=== PATIENT | male | born 1985 | race Caucasian/White ===

== ENCOUNTER 2021-05-11 22:14 | Emergency (ER) | payer SELFPAY ==
[~2021-05-11] VITALS: Ht 167.6 cm; Wt 72.1 kg
--- NOTE | 2021-05-11 22:26 | PHYS DOC ---
Past Medical History Past Medical History: No Pertinent History Past Surgical History: No Surgical History Smoking Status: Never Smoker Alcohol Use: None Drug Use: None General Adult EDM: Chief Complaint: CHEST PAIN HPI: HPI: 35-year-old male presents to the emergency department complaining of 2 weeks of left-sided chest pain adjacent to his sternum. He reports no palliative or provoking factors to his chest pain. He states the pain is intermittent, comes on at rest and with activity. He states the chest pain is also present when he breathes in deep. The patient denies any history of blood clots in his legs or his lungs, no recent travel including no long trips in the car or flights, no family history of blood clots, no personal history of any cancers or clotting disorders. He admits to nausea and one episode of vomiting. He denies any leg swelling, palpitations, cough, shortness of breath, fevers, chills, abdominal pain. Review of Systems: Review of Systems: ROS is otherwise negative except for what was mentioned in the HPI Heart Score: C/O Chest Pain: Yes HEART Score for Chest Pain: HEART Score for Chest Pain Response (Comments) Value History Slighlty/Non-Suspicious 0 ECG Normal 0 Age < 45 0 Risk Factors No Risk Factors 0 Troponin < Normal Limit 0 Total 0 Allergies: Allergies: Allergies Coded Allergies Type Severity Reaction Last Updated Verified No Known Drug Allergies 05/11/21 No Physical Exam: PE: Constitutional: No acute distress, non-toxic appearance. HENT: Atraumatic, bilateral external ears normal, nose normal. Eyes: Conjunctiva normal, no discharge. Neck: Normal range of motion, supple, no stridor. Cardiovascular: Heart rate regular rhythm. 2+ radial pulses and equal Lungs & Thorax: No respiratory distress, symmetrical expansion. Bilateral breath sounds clear to auscultation Chest wall: No reproducible chest wall tenderness to palpation, no lesions. Abdomen: Soft, no tenderness Skin: Warm, dry. Extremities: No tenderness, no cyanosis, ROM intact, no edema. Neurologic: Alert and oriented X 3, normal motor function, normal sensory function, no focal deficits noted. GCS 15. Psychologic: Affect normal, judgment normal, mood normal. Current Patient Data: Labs: Laboratory Tests Test 05/11/21 22:30 White Blood Count 7.1 x10^3/uL (4.0-11.0) Red Blood Count 4.90 x10^6/uL (4.30-5.70) Hemoglobin 15.0 g/dL (13.0-17.5) Hematocrit 42.8 % (39.0-53.0) Mean Corpuscular Volume 87 fL (79-100) Mean Corpuscular Hemoglobin 31 pg (25-35) Mean Corpuscular Hemoglobin Concent 35 g/dL (31-37) Red Cell Distribution Width 12.1 % (11.5-14.5) Platelet Count 203 x10^3/uL (140-400) Neutrophils (%) (Auto) 64 % (31-73) Lymphocytes (%) (Auto) 27 % (24-48) Monocytes (%) (Auto) 7 % (0-9) Eosinophils (%) (Auto) 1 % (0-3) Basophils (%) (Auto) 1 % (0-3) Neutrophils # (Auto) 4.6 x10^3/uL (1.8-7.7) Lymphocytes # (Auto) 2.0 x10^3/uL (1.0-4.8) Monocytes # (Auto) 0.5 x10^3/uL (0.0-1.1) Eosinophils # (Auto) 0.1 x10^3/uL (0.0-0.7) Basophils # (Auto) 0.0 x10^3/uL (0.0-0.2) Sodium Level 141 mmol/L (136-145) Potassium Level 3.4 mmol/L (3.5-5.1) Chloride Level 104 mmol/L (98-107) Carbon Dioxide Level 29 mmol/L (21-32) Anion Gap 8 (6-14) Blood Urea Nitrogen 8 mg/dL (8-26) Creatinine 1.2 mg/dL (0.7-1.3) Estimated GFR (Cockcroft-Gault) 68.1 Glucose Level 114 mg/dL (70-99) Calcium Level 8.6 mg/dL (8.5-10.1) Troponin I Quantitative < 0.017 ng/mL (0.000-0.055) TN-Uts-B-Type Natriuretic Peptide 20 pg/mL (0-124) Vital Signs: Vital Signs Date Time Temp Pulse Resp B/P (MAP) Pulse Ox O2 Delivery O2 Flow Rate FiO2 9/11/21 22:16 97.6 61 16 160/97 (118) 95 Room Air 97.6 EKG: EK: Normal sinus rhythm rate of 59, no ST-T wave changes, no ectopic beats, normal axis, normal NV, QRS, and QTc intervals. Impression: Normal EKG. interpreted by meGreg D.O. Radiology/Procedures: Radiology/Procedures: Exam: Chest one view INDICATION: Chest pain TECHNIQUE: Frontal view of the chest Comparisons: None FINDINGS: The cardiomediastinal silhouette and pulmonary vessels are within normal limits. The lung and pleural spaces are clear. IMPRESSION: No acute cardiopulmonary process. Electronically signed by: Louann Davila MD (05/11/2021 11:33 PM) Course & Med Decision Making: Course & Med Decision Making PERC Rule for Pulmonary Embolism from [employer] on 05/11/2021 RESULT SUMMARY: 0 criteria No need for further workup, as <2% chance of PE. If no criteria are positive and clinicians pre-test probability is <15%, PERC Rule criteria are satisfied. INPUTS: Age ?50 > 0 = No HR ?100 > 0 = No O? sat on room air > 0 = No Unilateral leg swelling > 0 = No Hemoptysis > 0 = No Recent surgery or trauma > 0 = No Prior PE or DVT > 0 = No Hormone use > 0 = No Departure Departure Impression: Primary Impression: Chest pain Disposition: 01 HOME / SELF CARE / HOMELESS Condition: GOOD Referrals: HANANE MIRELES PA-C (PCP) Patient Instructions: Chest Pain (Nonspecific), [id number] Additional Instructions: You were seen in the emergency department for chest pain. Your exam and testing did not show any acute abnormality that warranted admission today but does not rule out underlying cardiovascular disease. You need to follow up with your primary doctor and/or cardiology for further evaluation. Return to the Emergency Department immediately, day or night, if you have worsening or continued chest pain, shortness of breath, nausea, sweating during chest pain, trouble breathing, chest pain with exertion (climbing stairs or walking for example), leg swelling or for any other concerns. GREG RODRIGUEZ DO May 11, 2021 22:26
[2021-05-11 22:59] LABS: BASO % 1 % (0-3); EOS # 0.1 x10^3/uL (0.0-0.7); EOS % 1 % (0-3); HEMATOCRIT 42.8 % (39.0-53.0); LYMPH % 27 % (24-48); MEAN CORPUSCULAR HEMOGLOBIN 31 pg (25-35); MEAN CORPUSCULAR HGB CONC 35 g/dL (31-37); MEAN CORPUSCULAR VOLUME 87 fL (79-100); MONO # 0.5 x10^3/uL (0.0-1.1); MONO % 7 % (0-9); NEUT # 4.6 x10^3/uL (1.8-7.7); NEUT % 64 % (31-73); PLATELET COUNT 203 x10^3/uL (140-400); RED CELL DISTRIBUTION WIDTH 12.1 % (11.5-14.5); WHITE BLOOD COUNT 7.1 x10^3/uL (4.0-11.0)
[2021-05-11] MEDS ORDERED: IV NORMAL SALINE 1000ML BAG 1,000 ML IV ONE (23:00)
[2021-05-11] MEDS ORDERED: KETOROLAC 15 MG/ML VIAL. IVP ONE (23:00)
[2021-05-11 23:28] LABS: CALCIUM 8.6 mg/dL (8.5-10.1); CREATININE 1.2 mg/dL (0.7-1.3); GFR 68.1; POTASSIUM 3.4 mmol/L (3.5-5.1)
--- NOTE | 2021-05-11 23:35 | RAD ---
Exam: Chest one view INDICATION: Chest pain TECHNIQUE: Frontal view of the chest Comparisons: None FINDINGS: The cardiomediastinal silhouette and pulmonary vessels are within normal limits. The lung and pleural spaces are clear. IMPRESSION: No acute cardiopulmonary process. Electronically signed by: Louann Davila MD (05/11/2021 11:33 PM) ARANZA
[2021-05-12 00:48] VITALS: BP 116/69
--- NOTE | 2021-05-12 02:39 | EKG ---
[facility] [address] [place] [address] Test Date: 2021-05-11 Test Time: 22:20:31 Pat Name: FLORIDALMA KIMBROUGH Department: Room: Gender: M Design Verification Engineer: : [id number] Requested By: MAILE RODRIGUEZ Order Number: [id number] Reading MD: Roderick Ferrara Measurements Intervals Paradox Rate: 59 P: 60 VT: 146 QRS: 6 QRSD: 84 T: 61 QT: 372 QTc: 372 Interpretive Statements SINUS RHYTHM NORMAL ECG RI6.01 No previous ECG available for comparison Electronically Signed On 05-14-2021 13:27:06 CDT by Roderick Ferrara
== END 2021-05-12 00:55 | disposition home or self-care (01) ==
LOC: ER 22:14
DX: R07.2 Precordial pain (principal)
CPT/HCPCS: 36415; 71045; 80048; 83880; 84484; 85025; 93005; 96361; 96374; 99285; J1885; J7030